=== PATIENT | female | born 1960 | race Caucasian/White ===

== ENCOUNTER 2017-06-28 14:57 | Observation (INO) | payer BC ==
[~2017-06-28] VITALS: Ht 162.6 cm; Wt 65.3 kg
[~2017-06-28 14:57] MED LIST: LORA0.5T PO; ONDA4TAB7 PO; OXYC5TAB3 PO; TRAZ50TA18 PO
[2017-06-28] MEDS ORDERED: ASPIRIN 81 MG TABLET CHEW PO ONE (16:00)
[2017-06-28] MEDS ORDERED: SODIUM CHLORIDE FLUSH 10ML SYR IVF ONE (16:00)
[2017-06-28] MEDS ORDERED: SODIUM CHLORIDE 0.9% 1,000ML IVBOLUS ONE (16:00)
[2017-06-28] MEDS ORDERED: ASPIRIN 81 MG TABLET CHEW ONE (16:29)
[2017-06-28] MEDS ORDERED: LORazepam 2 MG/ML, 1ML ONE (17:40)
[2017-06-28] MEDS ORDERED: HYDROmorphone 1 MG/ML, 1ML ONE ×2 (17:40→22:33)
[2017-06-28] MEDS ORDERED: MORPHINE SULFATE 4 MG/ML, 1ML IVPush PRN (18:00)
[2017-06-28] MEDS ORDERED: LORazepam 2 MG/ML, 1ML IVPush ONE (18:00)
[2017-06-28] MEDS ORDERED: HYDROmorphone 1 MG/ML, 1ML IV ONE ×2 (18:00→23:00)
[2017-06-28] MEDS ORDERED: ONDANSETRON 2MG/ML, 2ML ONE (18:10)
[2017-06-28 18:34] LABS: HEMATOCRIT 37.4 % (34.6-47.8); HEMOGLOBIN 12.4 g/dL (11.7-16.4); WHITE BLOOD COUNT 7.3 x10^3/uL (3.4-10)
[2017-06-28 18:42] LABS: BLOOD UREA NITROGEN 11 mg/dL (7-18)
[2017-06-28 18:47] LABS: ASPARTATE AMINO TRANSFERASE 16 U/L (15-37)
[2017-06-28] MEDS ORDERED: POTASSIUM CHLORIDE 20 MEQ TAB.ER.PRT ONE (19:26)
[2017-06-28] MEDS ORDERED: POTASSIUM CHLORIDE 20 MEQ TAB.ER.PRT PO ONE (19:30)
[2017-06-28] MEDS ORDERED: D5%-0.45NACL+KCL 20MEQ 1,000 ML IV SCH (22:39)
[2017-06-28] MEDS ORDERED: CEFTRIAXONE PMX 1GM/50ML 50 ML ONE (22:44)
[2017-06-28] MEDS ORDERED: TEMAZEPAM 15 MG CAPSULE PO PRN (23:00)
[2017-06-28] MEDS ORDERED: ENOXAPARIN 40 MG/0.4 ML SQ SCH (23:00)
[2017-06-28] MEDS ORDERED: hydrALAzine 20 MG/ML, 1ML IVPush PRN (23:00)
[2017-06-28] MEDS ORDERED: HEPARIN 5,000 UNITS/ML, 1ML SQ SCH (23:00)
[2017-06-28] MEDS ORDERED: ACETAMINOPHEN 325 MG TABLET PO PRN ×2 (23:00)
[2017-06-28] MEDS ORDERED: CEFTRIAXONE PMX 1GM/50ML 50 ML IV SCH (23:00)
[2017-06-28] MEDS ORDERED: ZOLPIDEM 5MG TABLET PO PRN (23:00)
[2017-06-28] MEDS ORDERED: ONDANSETRON 2MG/ML, 2ML IVPush PRN ×2 (23:00)
[2017-06-28 23:56] VITALS: BP 128/83
[2017-06-29] MEDS ORDERED: OXYcodone IR 5MG TABLET PO PRN
[2017-06-29] MEDS ORDERED: LOSA25TA5 PO (00:04)
[2017-06-29] MEDS ORDERED: ESCI20TA10 PO (00:04)
[2017-06-29] MEDS: FAMOTIDINE 20 MG/2 ML IVPush SCH ×2 (01:09→08:31)
[2017-06-29] MEDS: NS + 20MEQ KCL 1,000 ML IV SCH ×2 (01:48→08:31)
[2017-06-29 04:39] VITALS: BP 118/71
[2017-06-29 05:29] LABS: HEMATOCRIT 34.8 % (34.6-47.8); HEMOGLOBIN 11.7 g/dL (11.7-16.4); WHITE BLOOD COUNT 6.1 x10^3/uL (3.4-10)
[2017-06-29 05:47] LABS: ASPARTATE AMINO TRANSFERASE 12 U/L (15-37); BLOOD UREA NITROGEN 8 mg/dL (7-18)
[2017-06-29 07:32] VITALS: BP 139/84
[2017-06-29] MEDS ORDERED: METOCLOPRAMIDE 5 MG/ML, 2ML IVPush ONE (08:00)
[2017-06-29] MEDS ORDERED: LORazepam 2 MG/ML, 1ML ONE (09:46)
[2017-06-29] MEDS ORDERED: PROMETHAZINE 25 MG/ML, 1ML IM PRN (10:00)
[2017-06-29] MEDS ORDERED: LORazepam 2 MG/ML, 1ML IVPush ONE (10:00)
[2017-06-29] MEDS ORDERED: HEPARIN 5,000 UNITS/ML, 1ML SQ SCH (14:00)
[2017-06-29] MEDS ORDERED: TRAZODONE 50MG TABLET PO SCH (21:00)
== END 2017-06-29 11:37 | disposition left against medical advice (07) ==
LOC: ED 15:31 → INTOOBSV 21:05 → EDIP 21:05 → 5SO 23:50 → 3NE 06-29 10:37
PROVIDERS: ADMIT Internal Medicine; ATTEND Internal Medicine
DX: N39.0 Urinary tract infection, site not specified (principal); E87.6 Hypokalemia; E86.0 Dehydration; F41.1 Generalized anxiety disorder; R11.2 Nausea with vomiting, unspecified; R19.7 Diarrhea, unspecified; I10 Essential (primary) hypertension
CPT/HCPCS: 36415; 71275; 74177; 80053; 81001; 83605; 83690; 83735; 83880; 84443; 85025; 85651; 87040; 87086; 93005; 96361; 96365; 96366; 96367; 96372; 96375; 96376; 99285; G0378; J0696; J1170; J1644; J2060; J2765; J3480; J7030; S0028

== ENCOUNTER 2018-01-03 18:05 | Emergency (ER) | payer BC ==
[~2018-01-03] VITALS: Ht 162.6 cm; Wt 62.2 kg
[~2018-01-03 18:05] MED LIST changes: +ESCI20TA10 PO; +LOSA25TA5 PO
[2018-01-03] MEDS ORDERED: KETOROLAC 30 MG/1 ML ONE (19:29)
[2018-01-03] MEDS ORDERED: MORPHINE SULFATE 4 MG/ML, 1ML IVPush PRN (19:30)
[2018-01-03] MEDS ORDERED: DIAZEPAM 5 MG/ML, 10ML VIAL IVPush ONE (19:30)
[2018-01-03] MEDS ORDERED: SODIUM CHLORIDE FLUSH 10ML SYR IVF ONE (19:30)
[2018-01-03] MEDS ORDERED: KETOROLAC 30 MG/1 ML IVPush ONE (19:30)
[2018-01-03 19:34] LABS: BASOPHILS # (AUTO) 0.05 x10^3/uL (0-0.1); BASOPHILS % (AUTO) 1 % (0-1); EOSINOPHILS # (AUTO) 0.35 x10^3/uL (0-0.4); EOSINOPHILS % (AUTO) 4 % (1-7); LYMPHOCYTES # (AUTO) 3.36 x10^3/uL (1-3.4); LYMPHOCYTES % (AUTO) 36 % (22-44); MD NO; MEAN CORPUSCULAR HEMOGLOBIN 30.7 pg (27.0-34.8); MEAN CORPUSCULAR HGB CONC 34.3 g/dL (32.4-35.8); MEAN CORPUSCULAR VOLUME 89.4 fL (80-100); MEAN PLATELET VOLUME 6.9 fL (7.4-10.4); MONOCYTES # (AUTO) 0.75 x10^3/uL (0.2-0.8); MONOCYTES % (AUTO) 8 % (2-9); NEUTROPHILS # (AUTO) 4.87 x10^3/uL (1.8-6.8); NEUTROPHILS % (AUTO) 52 % (42-75); PLATELET COUNT 296 x10^3/uL (130-400); RED BLOOD COUNT 4.32 x10^6/uL (3.82-5.3); RED CELL DISTRIBUTION WIDTH 12.6 % (9.6-15.2)
[2018-01-03 19:44] LABS: ALANINE AMINOTRANSFERASE 25 U/L (12-78); ANION GAP 10 mmol/L (5-15); CALCIUM 9.3 mg/dL (8.5-10.1); CHLORIDE 103 mmol/L (98-107); CREATININE 0.74 mg/dL (0.55-1.02)
[2018-01-03 19:49] LABS: ALKALINE PHOSPHATASE 74 U/L (45-117); BILIRUBIN,TOTAL 0.2 mg/dL (0.2-1.0); TOTAL PROTEIN 7.4 g/dL (6.4-8.2); TROPONIN I < 0.015 ng/mL (0.000-0.045)
[2018-01-03] MEDS ORDERED: LORazepam 2 MG/ML, 1ML IVPush ONE (20:00)
[2018-01-03] MEDS ORDERED: POTASSIUM CHLORIDE 20 MEQ TAB.ER.PRT PO ONE (20:00)
[2018-01-03] MEDS ORDERED: POTASSIUM CHLORIDE 20 MEQ TAB.ER.PRT ONE (20:19)
[2018-01-03] MEDS ORDERED: FENTANYL PF 100 MCG/2ML IVPush ONE (21:30)
[2018-01-03] MEDS ORDERED: FENTANYL PF 100 MCG/2ML ONE (22:09)
[2018-01-03] MEDS ORDERED: HYDROcodone/APAP 10/325 MG TABLET ONE (22:50)
[2018-01-03 22:56] VITALS: BP 172/91
[2018-01-03] MEDS ORDERED: HYDROcodone/APAP 10/325 MG TABLET PO ONE (23:00)
[2018-01-03] MEDS ORDERED: OMNIPAQUE 350 MG/ML, 100ML BOTTLE ONE (23:31)
== END 2018-01-03 22:59 | disposition home or self-care (01) ==
LOC: ED 21:41
DX: M94.0 Chondrocostal junction syndrome [Tietze] (principal); J90 Pleural effusion, not elsewhere classified; I10 Essential (primary) hypertension
CPT/HCPCS: 36415; 71046; 71275; 80053; 83880; 84484; 85025; 85379; 93005; 96374; 96375; 99285; J1885; J3010; J3360; Q9967

== ENCOUNTER 2018-01-21 17:52 | Emergency (ER) | payer BC ==
[~2018-01-21] VITALS: Ht 162.6 cm; Wt 60.0 kg
[2018-01-21] MEDS ORDERED: KETOROLAC 30 MG/1 ML IM ONE (18:30)
[2018-01-21 18:46] LABS: BASOPHILS # (AUTO) 0.05 x10^3/uL (0-0.1); BASOPHILS % (AUTO) 1 % (0-1); EOSINOPHILS # (AUTO) 0.23 x10^3/uL (0-0.4); EOSINOPHILS % (AUTO) 3 % (1-7); LYMPHOCYTES # (AUTO) 3.58 x10^3/uL (1-3.4); LYMPHOCYTES % (AUTO) 38 % (22-44); MD NO; MEAN CORPUSCULAR HEMOGLOBIN 30.5 pg (27.0-34.8); MEAN CORPUSCULAR HGB CONC 34.1 g/dL (32.4-35.8); MEAN CORPUSCULAR VOLUME 89.4 fL (80-100); MONOCYTES # (AUTO) 0.61 x10^3/uL (0.2-0.8); MONOCYTES % (AUTO) 7 % (2-9); NEUTROPHILS # (AUTO) 4.96 x10^3/uL (1.8-6.8); NEUTROPHILS % (AUTO) 53 % (42-75); PLATELET COUNT 314 x10^3/uL (130-400); RED BLOOD COUNT 4.36 x10^6/uL (3.82-5.3); RED CELL DISTRIBUTION WIDTH 11.5 % (9.6-15.2)
[2018-01-21 18:51] LABS: ALBUMIN 4.1 g/dL (3.4-5.0); ANION GAP 11 mmol/L (5-15); CALCIUM 9.2 mg/dL (8.5-10.1); CHLORIDE 97 mmol/L (98-107); CREATININE 0.69 mg/dL (0.55-1.02)
[2018-01-21 18:55] LABS: TROPONIN I < 0.015 ng/mL (0.000-0.045)
[2018-01-21] MEDS ORDERED: KETOROLAC 30 MG/1 ML ONE (19:27)
[2018-01-21] MEDS ORDERED: LORazepam 1MG TABLET ONE (19:31)
[2018-01-21] MEDS ORDERED: POTASSIUM CHLORIDE 20 MEQ TAB.ER.PRT ONE (19:56)
[2018-01-21] MEDS ORDERED: POTASSIUM CHLORIDE 40 MEQ in SODIUM CHLORIDE 0.9% 500 ML IV ONE (20:00)
[2018-01-21] MEDS ORDERED: POTASSIUM CHLORIDE 20 MEQ TAB.ER.PRT PO ONE (20:00)
[2018-01-21] MEDS ORDERED: LORazepam 2 MG/ML, 1ML IVPush ONE (20:00)
[2018-01-21] MEDS ORDERED: LORazepam 1MG TABLET PO ONE (20:00)
[2018-01-21] MEDS ORDERED: FENTANYL PF 100 MCG/2ML ONE (20:56)
[2018-01-21 21:00] VITALS: BP 159/102
[2018-01-21] MEDS ORDERED: ONDANSETRON ODT 4 MG PO ONE (21:00)
[2018-01-21] MEDS ORDERED: FENTANYL PF 100 MCG/2ML IV ONE (21:00)
[2018-01-21] MEDS ORDERED: MORPHINE SULFATE 4 MG/ML, 1ML IVPush PRN (21:00)
== END 2018-01-21 22:21 | disposition home or self-care (01) ==
LOC: ED 19:27
DX: R09.1 Pleurisy (principal); I10 Essential (primary) hypertension; F41.9 Anxiety disorder, unspecified
CPT/HCPCS: 36415; 71046; 80048; 82040; 83880; 84484; 85025; 93005; 96365; 96372; 96375; 99285; J1885; J3010; J3480; J7040

== ENCOUNTER 2018-03-28 14:07 | Emergency (ER) | payer BC ==
[~2018-03-28] VITALS: Ht 162.6 cm; Wt 62.5 kg
[2018-03-28] MEDS ORDERED: NAPR-856 PO (14:53)
[2018-03-28] MEDS ORDERED: OMEP20TA62 PO (14:53)
[2018-03-28] MEDS ORDERED: METOCLOPRAMIDE 5 MG/ML, 2ML ONE (15:16)
[2018-03-28] MEDS ORDERED: LORazepam 2 MG/ML, 1ML ONE (15:16)
[2018-03-28] MEDS ORDERED: KETOROLAC 30 MG/1 ML ONE (15:17)
[2018-03-28 15:24] LABS: BASOPHILS # (AUTO) 0.05 x10^3/uL (0-0.1); BASOPHILS % (AUTO) 1 % (0-1); EOSINOPHILS # (AUTO) 0.34 x10^3/uL (0-0.4); EOSINOPHILS % (AUTO) 4 % (1-7); LYMPHOCYTES # (AUTO) 2.98 x10^3/uL (1-3.4); LYMPHOCYTES % (AUTO) 38 % (22-44); MD NO; MEAN CORPUSCULAR HEMOGLOBIN 29.5 pg (27.0-34.8); MEAN CORPUSCULAR HGB CONC 33.7 g/dL (32.4-35.8); MEAN CORPUSCULAR VOLUME 87.4 fL (80-100); MEAN PLATELET VOLUME 6.9 fL (7.4-10.4); MONOCYTES # (AUTO) 0.62 x10^3/uL (0.2-0.8); MONOCYTES % (AUTO) 8 % (2-9); NEUTROPHILS # (AUTO) 3.87 x10^3/uL (1.8-6.8); NEUTROPHILS % (AUTO) 49 % (42-75); PLATELET COUNT 278 x10^3/uL (130-400); RED BLOOD COUNT 4.84 x10^6/uL (3.82-5.3); RED CELL DISTRIBUTION WIDTH 11.6 % (9.6-15.2)
[2018-03-28] MEDS ORDERED: METOCLOPRAMIDE 5 MG/ML, 2ML IVPush ONE (15:30)
[2018-03-28] MEDS ORDERED: SODIUM CHLORIDE FLUSH 10ML SYR IVF ONE (15:30)
[2018-03-28] MEDS ORDERED: LORazepam 2 MG/ML, 1ML IVPush ONE (15:30)
[2018-03-28] MEDS ORDERED: KETOROLAC 60 MG/2 ML IV ONE (15:30)
[2018-03-28 15:36] LABS: ANION GAP 9 mmol/L (5-15); CALCIUM 9.1 mg/dL (8.5-10.1); CHLORIDE 104 mmol/L (98-107)
[2018-03-28 15:41] LABS: ALANINE AMINOTRANSFERASE 24 U/L (12-78); ALKALINE PHOSPHATASE 73 U/L (45-117); BILIRUBIN,TOTAL 0.5 mg/dL (0.2-1.0); CREATININE 0.76 mg/dL (0.55-1.02); TOTAL PROTEIN 7.4 g/dL (6.4-8.2)
[2018-03-28] MEDS ORDERED: ONDANSETRON ODT 4 MG ONE (17:03)
[2018-03-28 17:10] LABS: TROPONIN I < 0.015 ng/mL (0.000-0.045)
[2018-03-28] MEDS ORDERED: IBUPROFEN 200 MG TABLET ONE (17:11)
[2018-03-28 17:12] LABS: MICROSCOPIC NOT IND
[2018-03-28 17:14] LABS: CULTURE INDICATED? NO
[2018-03-28 17:30] VITALS: BP 157/93
[2018-03-28] MEDS ORDERED: IBUPROFEN 200 MG TABLET PO ONE (17:30)
[2018-03-28] MEDS ORDERED: ONDANSETRON ODT 4 MG PO ONE (17:30)
== END 2018-03-28 18:29 | disposition home or self-care (01) ==
LOC: ED 14:44
DX: R07.89 Other chest pain (principal); R11.2 Nausea with vomiting, unspecified; F41.1 Generalized anxiety disorder; E87.6 Hypokalemia; I10 Essential (primary) hypertension
CPT/HCPCS: 36415; 71045; 80053; 81003; 83690; 84484; 85025; 93005; 96374; 99285; J2060; Q0162